=== PATIENT | female | born 1975 | race Caucasian/White ===

== ENCOUNTER 2023-02-08 12:56 | Outpatient (OUT) | payer BC, SELFPAY ==
--- NOTE | 2023-02-08 13:06 | XR_ITS ---
The [address] [address] Patient Name: TAWANDA HUMPHREY MRN: [id number] date: 1975 Sex: F Assigned Patient Location: [facility] Current Patient Location: [facility] Accession/Order Number: [id number] Exam Date: 02/08/2023 13:10 Report Date: 02/08/2023 13:47 At the request of: ZION BUI Procedure: XR ankle RT min 3V EXAM: XR ankle RT min 3V HISTORY: RIGHT ANKLE PAIN COMPARISON: None. TECHNIQUE: 3 views FINDINGS: Status post right total arthroplasty with fixation pins and plate to the distal tibia. Abandon screw is noted to the medial malleolus. Removal prior screws are noted as evident by the holes in the distal right fibula. Mild soft tissue swelling. No acute fracture or dislocation. IMPRESSION: Soft tissue swelling with ankle arthroplasty as above. Electronically authenticated by: ARSALAN GLEASON Date: 02/08/2023 13:47
== END 2023-02-08 12:57 | disposition home or self-care (01) ==
LOC: RAD 12:56
PROVIDERS: Visit Provider Physician Assistant
DX: M19.071 Primary osteoarthritis, right ankle and foot (principal)
CPT/HCPCS: 73610

== ENCOUNTER 2023-05-25 11:53 | Outpatient (OUT) | payer BC, SELFPAY ==
--- NOTE | 2023-05-25 | XR_ITS ---
The [address] [address] Patient Name: TAWANDA HUMPHREY MRN: [id number] date: 1975 Sex: F Assigned Patient Location: [facility] Current Patient Location: [facility] Accession/Order Number: [id number] Exam Date: 05/25/2023 08:50 Report Date: 05/25/2023 09:46 At the request of: MICK MEZA Procedure: XR ankle RT min 3V PROCEDURE: XR ankle RT min 3V HISTORY: RIGHT ANKLE PAIN COMPARISON: XR ankle right 02/08/2023 FINDINGS: BONES:Prior prosthetic replacement of the articular surfaces of the tibial plafond and talar dome without evidence of hardware fracture loosening. Remnant screw fragment within medial malleolus, unchanged. Prior hardware removal from distal fibula. SOFT TISSUES:Mild-moderate soft tissue swelling surrounding the ankle. EFFUSION:None visible. OTHER: Negative. XR/XR ankle RT min 3V IMPRESSION: 1. Stable surgical changes without evidence of hardware failure or change in alignment. 2. Stable moderate soft tissue swelling. Electronically authenticated by: SALONI DAVIES Date: 05/25/2023 09:46
== END 2023-05-25 11:54 | disposition home or self-care (01) ==
PROVIDERS: Visit Provider Podiatrist Foot & Ankle Surgery
DX: M67.88 Other specified disorders of synovium and tendon, other site (principal)
CPT/HCPCS: 73610